=== PATIENT | female | born 1930 | race Asian ===

== ENCOUNTER 2017-02-09 14:18 | Emergency (ER) | payer OTHER, MEDICAID ==
--- NOTE | 2017-02-09 14:31 | CPEKG ---
Heart Rate: 67 RR Interval: 896 P-R Interval: 204 QRSD Interval: 94 QT Interval: 416 QTC Interval: 439 P [place]: 9 QRS [place]: -30 T Wave [place]: 38 EKG Severity - OTHERWISE NORMAL ECG - EKG Impression: SINUS RHYTHM EKG Impression: LEFT AXIS DEVIATION Electronically Signed By: Anjel Rubi 09-Feb-2017 14:50:04
[2017-02-09] MEDS ORDERED: NS 1,000 ML IV ONE (14:45)
[2017-02-09] MEDS ORDERED: ASPIRIN 81 MG CHEWABLE TAB PO ONE (14:45)
--- NOTE | 2017-02-09 14:49 | EDPHY ---
H & P Time Seen by Provider: 02/09/17 14:29 HPI/ROS: CHIEF COMPLAINT: Chest pain HISTORY OF PRESENT ILLNESS: Patient is an 86-year-old female who presents to the emergency department complaining of left-sided chest pain. She states that it began about 5 days ago. She tends to have short episodes last about 10-20 seconds each. On day 1 she had about 5 or 6 but they have increased each day until today she has had about 12. She describes it as very light. She states that it may be a pressure. No shortness of breath. No nausea vomiting. No diaphoresis. No lightheadedness. She has had slightly increase in her baseline cough. No fever. She and her family deny having any cardiac history. REVIEW OF SYSTEMS: Constitutional: denies: chills, fever, recent illness, recent injury EENTM: denies: blurred vision, double vision, nose congestion Respiratory: denies: cough, shortness of breath Cardiac: See HPI Gastrointestinal/Abdominal: denies: abdominal pain, diarrhea, nausea, vomiting, blood streaked stools Genitourinary: denies: dysuria, frequency, hematuria, pain Musculoskeletal: denies: joint pain, muscle pain Skin: denies: lesions, rash, jaundice, bruising Neurological: denies: headache, numbness, paresthesia, tingling, dizziness, weakness Hematologic/Lymphatic: denies: blood clots, easy bleeding, easy bruising Immunologic/allergic: denies: HIV/AIDS, transplant EXAM: GENERAL: Well-appearing, well-nourished and in no acute distress. HEAD: Atraumatic, normocephalic. EYES: Pupils equal round and reactive to light, extraocular movements intact, sclera anicteric, conjunctiva are normal. ENT: TMs normal, nares patent, oropharynx clear without exudates. Moist mucous membranes. NECK: Normal range of motion, supple without lymphadenopathy or JVD. LUNGS: Right lower lobe rhonchi HEART: Regular rate and rhythm without murmurs, rubs or gallops. ABDOMEN: Soft, nontender, normoactive bowel sounds. No guarding, no rebound. No masses appreciated. BACK: No CVA tenderness, no spinal tenderness, step-offs or deformities EXTREMITIES: Normal range of motion, no pitting or edema. No clubbing or cyanosis. NEUROLOGICAL: Cranial nerves II through XII grossly intact. Normal speech, normal gait. 5/5 strength, normal movement in all extremities, normal sensation PSYCH: Normal mood, normal affect. SKIN: Warm, dry, normal turgor, no visible rashes or lesions. Source: Patient Exam Limitations: No limitations - Personal History Tetanus Vaccine Date: < 10 years - Medical/Surgical History Hx Asthma: No Hx Chronic Respiratory Disease: No Hx Diabetes: No Hx Cardiac Disease: Yes Hx Renal Disease: No Hx Cirrhosis: No Hx Alcoholism: No Hx HIV/AIDS: No Hx Splenectomy or Spleen Trauma: No Other PMH: ulcer, Hepatitis C, HTN, pre-diabetes - Family History Significant Family History: No pertinent family hx - Social History Smoking Status: Never smoked Alcohol Use: Sober Drug Use: None Constitutional: Initial Vital Signs Temperature (C) 36.8 C 02/09/17 14:42 Heart Rate 68 02/09/17 14:42 Respiratory Rate 18 02/09/17 14:42 Blood Pressure 173/87 H 02/09/17 14:42 O2 Sat (%) 95 02/09/17 14:42 O2 Delivery Mode Room Air Allergies/Adverse Reactions: unknown pain med Allergy (Uncoded 02/09/17 14:39) Home Medications: Medication Instructions Recorded NK [No Known Home Meds] 02/09/17 Medical Decision Making - Diagnostics EKG Interpretation: An EKG obtained and was read and documented in trace view. Please see trace view for full reading and report. Sinus rhythm, no acute ischemic changes Imaging Results: Imaging Impressions Chest X-Ray 02/09/17 14:45 Impression: 1. Stable mild blunting of the right costophrenic angle could represent tiny residual effusion or pleural thickening. 2. Stable fibrotic change suspected at the left base. 3. Tortuous aorta with atherosclerotic calcifications. Chest/Thorax CTA 02/09/17 15:08 Impression: 1. No evidence of intraluminal thrombus within the pulmonary arterial system. 2. Moderate dilatation of the ascending aorta with arteriosclerotic calcifications. 3. Atherosclerotic calcified plaques associated with the coronary arteries. Mild cardiomegaly. 4. Small right pleural effusion. 5. Lobulated contour of the liver suggestive of cirrhosis. 6. Complex possible cyst within the right lobe liver adjacent to the gallbladder fossa inferiorly. Findings discussed with Anjel Rubi M.D. at 16:02 hour, 02/09/2017. ED Course/Re-evaluation: CHF appeared in the patient's previous records. She and her family deny this. She has never had any heart attacks, stents or enlarged heart. Her white blood cell count is low but at her baseline. She is also anemic. She states that she has always been told this and nobody knows why. No history of cancer. Her D-dimer is elevated. We will obtain a CT angio. CT chest angiogram was ordered because of positive D-dimer and chest pain 4:[address] and lab results which are very reassuring. The patient is asymptomatic. I recommended admission for continued rule out but she and her family decline. I offered 4 hour repeat troponin she and family declined. They would like to go home and return if her symptoms worsen. We discussed signs to watch for. She sees Dr. Albert here in this building. I will speak with their office to ensure that she can have early follow-up and likely stress testing. Differential Diagnosis: Partial list of the Differential diagnosis considered include but were not limited to; acute coronary disease, pleurisy, PE, pneumonia and although unlikely based on the history and physical exam, I also considered pneumothorax , dissection, aneurysm. I discussed these differential diagnoses and the plan with the patient as well as the usual and expected course. The patient understands that the diagnosis is provisional and that in medicine we are not always correct and that further workup is often warranted. Usual and customary warnings were given. All of the patient's questions were answered. The patient was instructed to return to the emergency department should the symptoms at all worsen or return, otherwise to followup with the physician as we discussed. - Data Points Laboratory Results: Laboratory Results 02/09/17 14:37 02/09/17 14:37 02/09/17 02/09/17 02/09/17 14:37 14:37 14:37 WBC 1.27 10^3/uL L 10^3/uL (3.80-9.50) RBC 3.18 10^6/uL L 10^6/uL (4.18-5.33) Hgb 11.1 g/dL L g/dL (12.6-16.3) Hct 31.9 % L % (38.0-47.0) MCV 100.3 fL H fL (81.5-99.8) MCH 34.9 pg H pg (27.9-34.1) MCHC 34.8 g/dL g/dL (32.4-36.7) RDW 14.2 % % (11.5-15.2) Plt Count 36 10^3/uL L 10^3/uL (150-400) MPV 11.2 fL fL (8.7-11.7) Neut % (Auto) 45.7 % % (39.3-74.2) Lymph % (Auto) 29.9 % % (15.0-45.0) [place] % (Auto) 18.9 % H % (4.5-13.0) Eos % (Auto) 4.7 % % (0.6-7.6) Baso % (Auto) 0.8 % % (0.3-1.7) Nucleat RBC Rel Count 0.0 % % (0.0-0.2) Absolute Neuts (auto) 0.58 10^3/uL L 10^3/uL (1.70-6.50) Absolute Lymphs (auto) 0.38 10^3/uL L 10^3/uL (1.00-3.00) Absolute Monos (auto) 0.24 10^3/uL L 10^3/uL (0.30-0.80) Absolute Eos (auto) 0.06 10^3/uL 10^3/uL (0.03-0.40) Absolute Basos (auto) 0.01 10^3/uL L 10^3/uL (0.02-0.10) Absolute Nucleated RBC 0.00 10^3/uL 10^3/uL (0-0.01) Immature Gran % 0.0 % % (0.0-1.1) Immature Gran # 0.00 10^3/uL 10^3/uL (0.00-0.10) Platelet Estimate DECREASED L (ADEQ) PT 15.3 SEC H SEC (12.0-15.0) INR 1.24 H (0.83-1.16) APTT 38.8 SEC H SEC (23.0-38.0) D-Dimer 2.26 ug/mLFEU H ug/mLFEU (0.00-0.50) Sodium 136 mEq/L mEq/L (134-144) Potassium 4.3 mEq/L mEq/L (3.5-5.2) Chloride 105 mEq/L mEq/L (97-110) Carbon Dioxide 23 mEq/l mEq/l (22-31) Anion Gap 8 mEq/L mEq/L (8-16) BUN 22 mg/dL mg/dL (7-23) Creatinine 0.8 mg/dL mg/dL (0.6-1.0) Estimated GFR > 60 Glucose 136 mg/dL H mg/dL (70-100) Calcium 8.7 mg/dL mg/dL (8.5-10.4) Troponin I < 0.012 ng/mL ng/mL (0.000-0.034) Medications Given: Discontinued Medications Aspirin (Aspirin) 324 mg PO EDNOW ONE Stop: 02/09/17 14:46 Last Admin: 02/09/17 15:17 Dose: 324 mg Sodium Chloride (Ns) 1,000 mls @ 0 mls/hr IV EDNOW ONE; Wide Open PRN Reason: Protocol Stop: 02/09/17 14:46 Last Admin: 02/09/17 15:18 Dose: 1,000 mls Departure - Departure Disposition: Home, Routine, Self-Care Clinical Impression: Chest pain Qualifiers: Chest pain type: unspecified Qualified Code(s): R07.9 - Chest pain, unspecified Condition: Fair Instructions: Chest Pain (ED) Referrals: Noemy Albert MD [Primary Care Provider] - 2-3 days, call for appt.
[2017-02-09 14:51] LABS: ADD DIFF? NO; ADD MORPH? NO; ADD SCAN? NO; ATYPICAL LYMPHOCYTE FLAG 0 (0-99); FRAGMENT RBC FLAG 0 (0-99); HEMATOCRIT 31.9 % (38.0-47.0); HEMOGLOBIN 11.1 g/dL (12.6-16.3); LEFT SHIFT FLG 0 (0-99); LIPEMIA HEMOLYSIS FLAG 90 (0-99); MEAN CELL HEMOGLOBIN 34.9 pg (27.9-34.1); MEAN CELL HEMOGLOBIN CONCENTR. 34.8 g/dL (32.4-36.7); MEAN CELL VOLUME 100.3 fL (81.5-99.8); MEAN PLATELET VOLUME 11.2 fL (8.7-11.7); PLATELET CLUMPS FLAG 0 (0-99); PLATELET COUNT 36 10^3/uL (150-400); RED BLOOD CELL COUNT 3.18 10^6/uL (4.18-5.33); RED CELL DISTRIBUTION WIDTH 14.2 % (11.5-15.2)
[2017-02-09 14:56] LABS: INR 1.24 (0.83-1.16); PROTIME(PATIENT) 15.3 SEC (12.0-15.0)
[2017-02-09 14:57] LABS: APTT 38.8 SEC (23.0-38.0)
[2017-02-09 15:03] VITALS: TEMP 98.2
[2017-02-09 15:05] LABS: ANION GAP 8 mEq/L (8-16); CALCIUM 8.7 mg/dL (8.5-10.4); CARBON DIOXIDE 23 mEq/l (22-31); CHLORIDE 105 mEq/L (97-110); CREATININE 0.8 mg/dL (0.6-1.0); GLOMERULAR FILTRATION RATE > 60; GLUCOSE 136 mg/dL (70-100); POTASSIUM 4.3 mEq/L (3.5-5.2); SODIUM 136 mEq/L (134-144)
[2017-02-09 15:09] LABS: TROPONIN I < 0.012 ng/mL (0.000-0.034)
[2017-02-09 15:11] LABS: PLATELET ESTIMATE DECREASED (ADEQ)
[2017-02-09] MEDS ORDERED: IOPAMIDOL (ISOVUE 370) 100 ML BTL IV ONE (15:14)
[2017-02-09 16:40] VITALS: BP 157/96; PULSE 64; RESP 20; O2SAT 96
== END 2017-02-09 16:30 | disposition home or self-care (01) ==
LOC: CED 14:18
DX: R07.9 Chest pain, unspecified (principal); I10 Essential (primary) hypertension; E86.9 Volume depletion, unspecified
CPT/HCPCS: 71020; 71275; 93005; 96360; 99285; Q9967; 80048-PO; 84484-PO; 85025-PO; 85378-PO; 85610-PO; 85730-PO

== ENCOUNTER 2017-04-09 14:54 | Observation (INO) | payer OTHER, MEDICAID ==
--- NOTE | 2017-04-09 15:04 | CPEKG ---
Heart Rate: 79 RR Interval: 759 P-R Interval: 204 QRSD Interval: 92 QT Interval: 400 QTC Interval: 459 P [place]: 3 QRS [place]: -30 T Wave [place]: 41 EKG Severity - OTHERWISE NORMAL ECG - EKG Impression: SINUS RHYTHM EKG Impression: LEFT AXIS DEVIATION Electronically Signed By: Abilio Desai 09-Apr-2017 16:11:59
[2017-04-09] MEDS ORDERED: ASPIRIN 81 MG CHEWABLE TAB PO ONE (15:09)
[2017-04-09] MEDS ORDERED: NS 500 ML IV ONE (15:09)
[2017-04-09] MEDS ORDERED: NITROGLYCERIN 0.4 MG BTL SL ONE ×2 (15:13)
[2017-04-09] MEDS ORDERED: NS 1,000 ML IV SCH (15:15)
[2017-04-09 15:17] LABS: PLATELET COUNT 41 10^3/uL (150-400)
--- NOTE | 2017-04-09 15:23 | EDPHY ---
H & P Time Seen by Provider: 04/09/17 14:58 HPI/ROS: HPI Chest discomfort. 86-year-old female by private vehicle with her daughter. This patient reports that she developed a sensation of chest discomfort which she describes as a pressure sensation last night prior to going to bed. She also reports that last night prior to going to bed she had a heavy sensation in her right shoulder. She reports that she was able to sleep but woke up at 6:00 a.m. in the pain in her chest was worse. She reports she was able to go back to sleep for a couple of hours but then woke up again and the pain has persisted through the day. She reports that has been intermittent in intensity but present at a low level for most of the day. She reports now that she is in the emergency department she does not have any pain. She also reports associated exertional shortness of breath. Recent history includes a long plane flight from [facility] through [facility] where they were stuck in bad weather and then here. She has no prior history of coronary artery disease or venous thrombosis. She states that she has been diagnosed with hypertension in the past as well as non-insulin -dependent diabetes but does not take medications for this currently. ROS: Constitutional: No fever, no chills. No weakness. Eyes: No discharge. No changes in vision. ENT: No sore throat. No nasal congestion or rhinorrhea. Respiratory: No cough. As above. Cardiac: As above, no palpitations. Gastrointestinal: No abdominal pain, no vomiting, no diarrhea. Genitourinary: No hematuria. No dysuria or increased frequency with urination. Musculoskeletal: No back pain. No neck pain. No myalgias or arthralgias. Skin: No rashes. Neurological: No headache. No focal weakness or altered sensation. Past medical history: Peptic ulcer disease, hepatitis-C, as above. Her primary care physician is Dr. Noemy Albert in this building. Social history: Nonsmoker. No alcohol. Here with her daughter. Physical Exam: General Appearance: Alert, no distress. This patient is responding to questions appropriately and in full sentences. This patient appears well- hydrated and well-nourished. Eyes: Pupils equal and round no pallor or injection. No lid edema, erythema or injection. Respiratory: There are no retractions, lungs are clear to auscultation with good air movement bilaterally. Cardiovascular: Regular rate and rhythm. No murmur. Gastrointestinal: Abdomen is soft and nontender, no masses, bowel sounds normal. No focal tenderness at McBurney's point. No Burciaga sign. Neurological: Motor sensory function is grossly intact. Cranial nerves are normal. Skin: Warm and dry, no rashes. Musculoskeletal: Neck is supple and nontender. Extremities are symmetrical. All joints range without pain or impingement. Psychiatric: No agitation. No depression. Database: EKG: EKG time is 3:01 p.m.; EKG shows a narrow complex normal sinus rhythm with a ventricular rate of 79. Left axis deviation noted. The LA, QRS, QT intervals are within normal limits. There are no ST-T wave changes indicative of ischemic or injury pattern. No evidence of right heart strain. Interpreted by me. EKG time is 3:47 p.m.; EKG shows a narrow complex normal sinus rhythm with a ventricular rate of 73. Left axis deviation noted. The LA, QRS, QT intervals are within normal limits. There are no ST-T wave changes indicative of ischemic or injury pattern. No evidence of right heart strain. Interpreted by me. Imaging: Chest x-ray AP portable; the cardiac mediastinal silhouette is unremarkable. No evidence of infiltrate or pneumothorax. No acute cardiopulmonary disease process noted. Interpreted by me. CT angiogram of chest; negative for pulmonary embolism and dissection. Stable since previous study. No acute pathology. Results were discussed with staff radiologist Dr. Andi Goddard. Procedures: Emergency department course: IV placed. She was placed on a cardiac cath lab manager. EKG obtained and reviewed by myself. Vital signs reviewed. She is moderately hypertensive. No chest pain at this time. She was given 324 mg of chewed aspirin. Nitroglycerin at the bedside. 3:40 p.m., patient re-evaluated. No chest pain at this time. Talking with family on her cell phone. Results of elevated D-dimer discussed. Patient consents for CT angiogram of chest to evaluate for PE. CBC reviewed. Patient thrombocytopenic and leukopenic. Patient's troponin is elevated at 0.051. EKG repeated. Patient remains without chest pain. 3:50 p.m., spoke with on-call hospitalist Dr. Julianna grimes. He accepts this patient for transfer and admission to telemetry at [facility]. He is aware CT angiogram of chest is pending. 4:20 p.m., patient re-evaluated. Resting comfortably at this time. Results of CT angiogram of chest reviewed with her and family. Emergency department diagnostic workup discussed. All of their questions were answered. The patient was transferred by ambulance to [facility] in good condition. Differential Diagnosis: The differential diagnosis on this patient includes but is not limited to acute coronary syndrome, pulmonary embolism, congestive heart failure. This represents a partial list of diagnoses considered. These considerations are based on history, physical exam, past history, reassessment and diagnostic testing. Smoking Status: Never smoked Constitutional: Initial Vital Signs Temperature (C) 36.6 C 04/09/17 15:00 Heart Rate 83 04/09/17 15:00 Respiratory Rate 18 04/09/17 15:00 Blood Pressure 178/108 H 04/09/17 15:00 O2 Sat (%) 95 04/09/17 15:00 O2 Delivery Mode Room Air Allergies/Adverse Reactions: unknown pain med Allergy (Uncoded 04/09/17 15:08) Home Medications: Medication Instructions Recorded Multi-Vitamin Daily 04/09/17 Zyrtec 04/09/17 Medical Decision Making - Diagnostics Imaging Results: Imaging Impressions Chest X-Ray 04/09/17 15:10 Impression: 1. There is no new focal infiltrate, or congestive heart failure. 2. Stable cardiac and mediastinal silhouette in this patient with a prior history of a mild ascending thoracic aortic aneurysm. - Data Points Laboratory Results: Laboratory Results 04/09/17 15:10 04/09/17 15:10 04/09/17 04/09/17 04/09/17 15:10 15:10 15:10 WBC 1.27 10^3/uL L 10^3/uL (3.80-9.50) RBC 3.33 10^6/uL L 10^6/uL (4.18-5.33) Hgb 11.4 g/dL L g/dL (12.6-16.3) Hct 32.8 % L % (38.0-47.0) MCV 98.5 fL fL (81.5-99.8) MCH 34.2 pg H pg (27.9-34.1) MCHC 34.8 g/dL g/dL (32.4-36.7) RDW 13.7 % % (11.5-15.2) Plt Count 41 10^3/uL L 10^3/uL (150-400) MPV 10.9 fL fL (8.7-11.7) Neut % (Auto) 48.7 % % (39.3-74.2) Lymph % (Auto) 33.9 % % (15.0-45.0) [place] % (Auto) 14.2 % H % (4.5-13.0) Eos % (Auto) 1.6 % % (0.6-7.6) Baso % (Auto) 0.8 % % (0.3-1.7) Nucleat RBC Rel Count 0.0 % % (0.0-0.2) Absolute Neuts (auto) 0.62 10^3/uL L 10^3/uL (1.70-6.50) Absolute Lymphs (auto) 0.43 10^3/uL L 10^3/uL (1.00-3.00) Absolute Monos (auto) 0.18 10^3/uL L 10^3/uL (0.30-0.80) Absolute Eos (auto) 0.02 10^3/uL L 10^3/uL (0.03-0.40) Absolute Basos (auto) 0.01 10^3/uL L 10^3/uL (0.02-0.10) Absolute Nucleated RBC 0.00 10^3/uL 10^3/uL (0-0.01) Immature Gran % 0.8 % % (0.0-1.1) Immature Gran # 0.01 10^3/uL 10^3/uL (0.00-0.10) Platelet Estimate DECREASED L (ADEQ) PT 15.4 SEC H SEC (12.0-15.0) INR 1.24 H (0.83-1.16) APTT 36.3 SEC SEC (23.0-38.0) D-Dimer 2.70 ug/mLFEU H ug/mLFEU (0.00-0.50) Sodium 137 mEq/L mEq/L (134-144) Potassium 4.2 mEq/L mEq/L (3.5-5.2) Chloride 103 mEq/L mEq/L (97-110) Carbon Dioxide 22 mEq/l mEq/l (22-31) Anion Gap 12 mEq/L mEq/L (8-16) BUN 19 mg/dL mg/dL (7-23) Creatinine 0.9 mg/dL mg/dL (0.6-1.0) Estimated GFR 59 Glucose 177 mg/dL H mg/dL (70-100) Calcium 8.6 mg/dL mg/dL (8.5-10.4) Creatine Kinase 165 IU/L H IU/L (0-156) CK-MB (CK-2) Fraction 2.16 ng/mL ng/mL (0.00-4.55) CK-MB (CK-2) % 1.3 % % (0.0-4.0) Creatine Kinase Interp NEGATIVE (NEGATIVE) Troponin I 0.051 ng/mL H ng/mL (0.000-0.034) NT-Pro-B Natriuret Pep 293 pg/mL pg/mL (0-450) Medications Given: Sodium Chloride (Ns) 1,000 mls @ 500 mls/hr IV CONT AMAN Stop: 10/06/17 15:14 Last Admin: 04/09/17 15:20 Dose: 1,000 mls Discontinued Medications Aspirin (Aspirin) 324 mg PO EDNOW ONE Stop: 04/09/17 15:10 Last Admin: 04/09/17 15:16 Dose: 324 mg Sodium Chloride (Ns) 500 mls @ 1,000 mls/hr IV EDNOW ONE PRN Reason: Protocol Stop: 04/09/17 15:38 Last Admin: 04/09/17 15:21 Dose: Not Given Departure - Departure Disposition: [facility] In[facility] Acute Clinical Impression: Chest pain, Exertional dyspnea, Leukopenia, Thrombocytopenia
[2017-04-09 15:24] LABS: INR 1.24 (0.83-1.16); PROTIME(PATIENT) 15.4 SEC (12.0-15.0)
[2017-04-09 15:26] LABS: CREATINE KINASE 165 IU/L (0-156)
[2017-04-09] MEDS ORDERED: IOPAMIDOL (ISOVUE 370) 100 ML BTL IV ONE (15:42)
[2017-04-09] MEDS ORDERED: ONDANSETRON DISINTEGRATING 4 MG TAB PO PRN (21:02)
[2017-04-09] MEDS ORDERED: ACETAMINOPHEN 325 MG TAB PO PRN (21:02)
[2017-04-09] MEDS ORDERED: ONDANSETRON 4 MG/2 ML VIAL IVP PRN (21:02)
--- NOTE | 2017-04-09 21:37 | GHP ---
[f rep st] HISTORY AND PHYSICAL DATE OF ADMISSION: 04/09/2017 CHIEF COMPLAINT: Chest pain. HISTORY OF PRESENT ILLNESS: An 86-year-old female with no previous cardiac history. She woke up thi s morning with some chest pressure. She took her blood pressure, it was 180s/low 100s. She then shahla t back to sleep and it seemed like the pain went away, then woke up at 8 a.m. with continued chest pr essure. The chest pain did not resolve until she went to the emergency department. She used to be t reated for high blood pressure, but has not been on medications for a little bit of time. She marcin schmid does not have any chest pain. She does have a history of hepatitis C and some chronic liver dise ase, although that has been treated. She is quite active at baseline. REVIEW OF SYSTEMS: A 10-point review of systems was obtained, and other than stated, it was negative . PAST MEDICAL HISTORY: 1. Hepatitis C, status post treatment. 2. Cirrhosis. 3. Chronic leukopenia, which her daughter actually also has as well. 4. Hypertension. 5. Type 2 diabetes. Both of these she has stopped taking medicines per her doctor's request. SOCIAL HISTORY: No smoking or alcohol. FAMILY HISTORY: Both parents are . PHYSICAL EXAM: VITAL SIGNS: Afebrile, blood pressure is 158/92, heart rate 72, oxygen saturation 96 % on room air. GENERAL: The patient is well developed, in no apparent distress. HEENT: Nonicteric sclerae. Extraocular movements intact. Moist mucous membranes. NECK: Supple. No thyromegaly. L UNGS: Good effort. Clear to auscultation bilaterally. CARDIOVASCULAR: Regular rate and rhythm. N o murmurs, gallops. ABDOMEN: Positive bowel sounds. Soft, nontender, nondistended. No hepatosplen omegaly. EXTREMITIES: No clubbing, cyanosis, or edema. SKIN: Without rash. Warm, dry, intact. NE UROLOGIC: Alert and oriented x3. Moving all 4 extremities equally. PSYCHIATRIC: Normal mood and a ffect. LABORATORY DATA: EKG, personally reviewed and interpreted, showed normal sinus rhythm with no ischem ic changes. Chest x-ray, personally reviewed and interpreted, negative. CT scan of the chest shows no PE, mild aorta, coronary artery disease. White count 1, hemoglobin 11, platelets 41. Troponin slightly elevated at 0.051. ASSESSMENT: This is an 86-year-old female presenting with chest pain and a mildly elevated troponin. PLAN: 1. Chest pain. Patient is currently chest pain free. She does have a slightly elevated troponin, a lthough her EKG is nonischemic. We will cycle troponins. She is pretty active and, thus, we will ge t a stress test in the morning. 2. Chest pain could be the result of strain from high blood pressure. 3. Pancytopenia. The patient's daughter said that her white blood cell count is pretty low as well. This could also be due to chronic liver disease. 4. High blood pressure. We will watch her overnight. She may require some medication for her blood pressure. 5. Elevated blood sugar/type 2 diabetes. We will check hemoglobin A1c. /[id number]/MODL
[2017-04-10 04:30] LABS: PLATELET COUNT 40 10^3/uL (150-400)
--- NOTE | 2017-04-10 08:26 | CPEKG ---
Heart Rate: 73 RR Interval: 822 P-R Interval: 204 QRSD Interval: 98 QT Interval: 400 QTC Interval: 441 P [place]: 9 QRS [place]: -30 T Wave [place]: 25 EKG Severity - OTHERWISE NORMAL ECG - EKG Impression: SINUS RHYTHM EKG Impression: LEFT AXIS DEVIATION Electronically Signed For: Abilio Desai 10-Apr-2017 08:26:51
--- NOTE | 2017-04-10 08:46 | CPEKG ---
Heart Rate: 74 RR Interval: 811 P-R Interval: 156 QRSD Interval: 94 QT Interval: 416 QTC Interval: 462 P [place]: 9 QRS [place]: -28 T Wave [place]: 36 EKG Severity - OTHERWISE NORMAL ECG - EKG Impression: SINUS RHYTHM EKG Impression: VENTRICULAR PREMATURE COMPLEX EKG Impression: BORDERLINE LEFT AXIS DEVIATION Electronically Signed By: Ace Mcdonough 10-Apr-2017 14:34:59
[2017-04-10] MEDS ORDERED: CARVEDILOL 6.25 MG TAB PO ONE (11:20)
[2017-04-10] MEDS: ASPIRIN EC 81 MG TAB PO SCH (11:58)
--- NOTE | 2017-04-10 14:01 | GCON ---
[f rep st] CONSULTATION CARDIOLOGY CONSULTATION. DATE OF CONSULTATION: 04/10/2017 REASON FOR CONSULTATION: We were asked by Dr. Faith Levine of [facility] to evaluate the patien t for her elevated troponin and episodes of chest pain. HISTORY OF PRESENT ILLNESS: The patient is an 86-year-old female with a history of hypertension, off medications for the past 3 years, treated hep C, who is admitted after having episodes of chest pain . Her recent medical history involves having a diarrheal illness while she was traveling in the [facility] last week. She returned from the [facility] on Sunday after a 15 hour commu te. After her return that day, she noted URI type symptoms. On Sunday morning,which is the day of h er admission, she noted a severe upper midsternal chest discomfort that awoke her from her sleep. Sh e denies any radiation but noted that her heart rate felt elevated and she felt short of breath. She checked her blood pressure and it was quite elevated at 1 80s/100. The pain mitigated somewhat spon taneously and she went back to sleep. Again, she was woken at 8 a.m. with similar discomfort. Her bl ood pressure was similarly elevated. She called her family member who recommended emergency evaluati on. Upon arrival to the emergency department, she reports her symptoms have resolved. She has not h ad any further episodes of discomfort. She denies any previous episodes of this type of discomfort. She has not been noting any PND, orthopnea, palpitations, presyncope, syncope. REVIEW OF SYSTEMS: As per HPI. A complete 10-point review of systems was obtained and is negative e xcept for what is dictated. PAST MEDICAL HISTORY: 1. Treated hepatitis C. 2. History of cirrhosis. 3. History of chronic leukopenia. 4. History of hypertension previously on treatment. 5. History of type 2 diabetes mellitus not currently on any medications. SOCIAL HISTORY: The patient denies any alcohol or tobacco abuse. PAST SURGICAL HISTORY: Bladder suspension, hemorrhoidectomy and hysterectomy. FAMILY HISTORY: Father at age 36 with what is suspected to be some type of cancer. She has 6 c hildren. One child but the other 5 have no significant medical issues. PHYSICAL EXAM: VITAL SIGNS: BP of 150/82, heart rate of 66, respirations 16, O2 saturation 96% on r oom air, temp of 98.5 degrees Fahrenheit. GENERAL: She is a very pleasant female in no apparent dis tress. HEENT: Normocephalic atraumatic. Eyes are without scleral icterus. Mucous membranes moist. HEART: Regular rate and rhythm with no rubs, gallops, or murmurs. LUNGS: With minimal opening cr ackles. No rhonchi. ABDOMEN: Soft with normoactive bowel sounds. SKIN: Warm and dry without chucky a. PSYCHIATRIC: Normal mood and affect. NEUROLOGIC: No deficits detected grossly. LABORATORY DATA: CBC with WBC 1.21, hemoglobin 10.7, hematocrit 29.7, platelet count of 40. BMP was sodium 137, potassium 4.2, chloride 103, CO2 22, BUN 19, creatinine 0.9, glucose 177. Hemoglobin A1c of 5.5. Troponin 0.051, then 0.078 then 0.078. D-dimer 2. Chest x-ray images personally reviewed sh ows no acute cardiovascular process. A 12-lead ECG, personally interpreted, demonstrates sinus rhythm with 1 PVC, leftward axis. Telemetry review shows sinus rhythm. IMPRESSION AND PLAN: The patient presents with chest pain syndrome. 1. Chest pain. She has a minimally elevated troponin in the setting of very elevated blood pressure s. Symptoms may be acute coronary syndrome; however, she has no ongoing symptoms. Options were revi ewed and patient would like to adopt watchful waiting and medical management. She will be started on carvedilol for blood pressure as well as coronary artery disease management. 2. Hypertension. The patient has had a previous diagnosis of this and has quite elevated pressures c urrently. We will start with carvedilol. She was, in the past, on Univasc. 3. Pancytopenia. This is a known problem and may be related to her chronic liver disease. She may h ave outpatient followup for this. /[id number]/MODL
--- NOTE | 2017-04-10 14:29 | ASMTCMCOM ---
CM Note CM Note Notes: 04/10/2017 Case Management Note Reviewed chart, discussed with RN. There are no case management d/c needs identified d/t pt activity levels prior to admission and levels of family support. Pt is independent in ADL's. There are no PT or OT evals ordered at this time. Case Management d/c poc: anticipating home independent with follow up as directed. Case Management available if needs change. Date Signed: 04/10/2017 02:28 PM Electronically Signed By:Jyoti Jaffe RN
--- NOTE | 2017-04-10 14:53 | HOSPPROG ---
Hospitalist Progress Note Assessment/Plan: 86 yo F w htn, mildy + trop in setting of markedly elevated bp trop peaked no PE bp improved on carvedilol dc today known dilated aorta unchanged and without dissection Subjective: no events tele. case d/w ashanti pavon, cardiology PA Objective: Vital Signs Temp Pulse Resp BP Pulse Ox 36.9 C 66 16 150/82 H 96 04/10/17 12:07 04/10/17 12:07 04/10/17 12:07 04/10/17 12:07 04/10/17 12:07 Laboratory Results 04/10/17 03:21 04/09/17 04/10/17 04/11/17 05:59 05:59 05:59 Intake Total 900 220 Balance 900 220 PT 15.4 SEC (12.0-15.0) H 04/09/17 15:10 INR 1.24 (0.83-1.16) H 04/09/17 15:10 - Physical Exam Constitutional: no apparent distress, appears nourished Eyes: PERRL, anicteric sclera Ears, Nose, Mouth, Throat: moist mucous membranes, hearing normal Cardiovascular: regular rate and rhythym, no murmur, rub, or gallop Respiratory: no respiratory distress, no rales or rhonchi Gastrointestinal: normoactive bowel sounds, soft, non-tender abdomen Genitourinary: no bladder fullness, No valencia in urethra Skin: warm, normal color Musculoskeletal: full muscle strength, no muscle tenderness Neurologic: AAOx3 ICD10 Worksheet Patient Problems: Problems Problem Status Onset Chest pain Acute Exertional dyspnea Acute Leukopenia Acute Thrombocytopenia Acute
--- NOTE | 2017-04-10 17:13 | ECHO ---
[email or web address] [address] [address] Main: [phone] Fax: Transthoracic Echocardiogram Name: LIZZIE LARKIN MR#: [id number] Study Date: 04/10/2017 Study Time: 01:37 PM Date of : 1930 Age: 86 year(s) Height: 162.6 cm (64 in.) Weight: 71.67 kg (158 lb.) BSA: 1.77 m2 Gender: Female Examination: Echo Indication: ACS Image Quality: Contrast: Requested by: Rajwinder Kincaid BP: 150 mmHg/82 mmHg Heart Rate: Rhythm: Normal sinus rhythm Indication: ACS Procedure Staff Sewing Teacher: Rafael Gan Reading Physician: Ace Mcdonough Requesting Provider: Conclusions: Normal size left ventricle. No LV hypertrophy. Normal global systolic LV function. EF is 63 %. No regional wall motion abnormality. Diastolic dysfunction is present. . The left atrium is moderately to severely dilated. The right atrium is moderately dilated. Mild mitral valve leaflet calcification is present. Mild mitral valve regurgitation is present. The aortic valve is tri-leaflet. Mild aortic cusp calcification is noted. Mild aortic valve regurgitation is present. The tricuspid valve is normal in appearance and function. Measurements: Chambers Valvular Assessment AV/MV Valvular Assessment TV/PV Normal Normal Normal Name Value Range Name Value Range Name Value Range Ao Tanisha (MM): 3.2 cm (2.2 cm-3.7 AV Vmax: 1.90 m/s (1 m/s-1.7 TR Vmax: 2.74 mm/s ( - ) cm) m/s) TR PGmax: 30 mmHg ( - ) IVSd (2D): 1.2 cm (0.6 cm-1.1 AV maxP mmHg ( - ) syst. PAP: 35 mmHg ( - ) cm) LVOT Vmax: 0.98 m/s (0.7 m/s-1.1 PV Vmax: 1.02 m/s (0.6 m/s-0.9 LVDd (2D): 5.0 cm (3.9 cm-5.3 m/s) m/s) cm) AR (PHT): 805 ms ( - ) PV PGmax: 4 mmHg ( - ) LVDs (2D): 3.3 cm (2.1 cm-4 MV E Vmax: 0.82 m/s ( - ) cm) MV A Vmax: 1.15 m/s ( - ) LVPWd (2D): 1.2 cm ( - ) MV E/A: 0.71 ( - ) LVEF (2D): 63 (>=54 %) MV maxP mmHg ( - ) MV meanP mmHg ( - ) Patient: LIZZIE LARKIN Study Date: 04/10/2017 Page 1 of 2 01:37 PM Continued Measurements: Chambers Valvular Assessment AV/MV Valvular Assessment TV/PV Name Value Name Value Name Value LADs: 3.8 cm MV E/E' Septal: 24.40 CVP (est.): 5 mmHg LADs Lon.6 cm MV VTI: 40.80 cm LA Area: 24.2 cm2 AR Vmax: 3.36 cm/s LA Volume: 99 ml LA Volume Index: 55.9 ml/m2 Findings: Left Ventricle: Normal size left ventricle. No LV hypertrophy. Normal global systolic LV function. EF is 63 %. No regional wall motion abnormality. Diastolic dysfunction is present. . Right Ventricle: Normal size right ventricle. Left Atrium: The left atrium is moderately to severely dilated. Right Atrium: The right atrium is moderately dilated. Mitral Valve: Mild mitral valve leaflet calcification is present. Mild mitral valve regurgitation is present. No mitral stenosis is present. Aortic Valve: The aortic valve is tri-leaflet. Mild aortic cusp calcification is noted. Mild aortic valve regurgitation is present. No aortic valve stenosis is present. Tricuspid Valve: The tricuspid valve is normal in appearance and function. Pulmonic Valve: Pulmonary valve not well visualized. Aorta: The aorta is normal. Pericardium: No pericardial effusion. (No Signature Object) Patient: LIZZIE LARKIN Study Date: 04/10/2017 Page 2 of 2 01:37 PM [id number]
[2017-04-10] MEDS: CARVEDILOL 6.25 MG TAB PO SCH (18:02)
[2017-04-11 07:20] VITALS: BP 122/69; PULSE 58; RESP 14; TEMP 98; O2SAT 95
[2017-04-11] MEDS: ASPIRIN EC 81 MG TAB PO SCH (08:56)
[2017-04-11] MEDS: CARVEDILOL 6.25 MG TAB PO SCH (08:57)
--- NOTE | 2017-04-11 09:48 | HOSPPROG ---
Hospitalist Progress Note Assessment/Plan: 86 yo F w htn, mildy + trop in setting of markedly elevated bp trop peaked no PE bp improved on carvedilol dc today known dilated aorta unchanged and without dissection home today see dc summary Subjective: feels great. ready for dc Objective: Vital Signs Temp Pulse Resp BP Pulse Ox 36.7 C 58 L 14 122/69 H 95 04/11/17 07:18 04/11/17 07:18 04/11/17 07:18 04/11/17 07:18 04/11/17 07:18 Laboratory Results 04/10/17 03:21 04/10/17 04/11/17 04/12/17 05:59 05:59 05:59 Intake Total 900 920 Balance 900 920 PT 15.4 SEC (12.0-15.0) H 04/09/17 15:10 INR 1.24 (0.83-1.16) H 04/09/17 15:10 - Physical Exam Constitutional: no apparent distress, appears nourished Eyes: PERRL, anicteric sclera Ears, Nose, Mouth, Throat: moist mucous membranes, hearing normal Cardiovascular: regular rate and rhythym, no murmur, rub, or gallop Respiratory: no respiratory distress, no rales or rhonchi Gastrointestinal: normoactive bowel sounds, soft, non-tender abdomen Genitourinary: no bladder fullness, No valencia in urethra Skin: warm Musculoskeletal: full muscle strength Neurologic: AAOx3 Psychiatric: interacting appropriately ICD10 Worksheet Patient Problems: Problems Problem Status Onset Chest pain Acute Exertional dyspnea Acute Leukopenia Acute Thrombocytopenia Acute
--- NOTE | 2017-04-11 10:40 | PDCARPN ---
Cardiology Progress Note Chief Complaint: cp/? ACS Assessment/Plan: Assessment: 86F PMH htn (off meds), T2DM, p/w cp. Antecedent GI and URI illnesses. Trops minimally elevated. #. cp/?ACS: trops flat and low pt opted for medical management no recurrence of cp has tolerated addition of Coreg Echo with normal EF and grossly normal for age OK to d/c #. Htn: BP improved on Coreg pt advised to maintain BP log for next few weeks Plan: OK to d/c follow up cardiology 2 weeks 04/11/17 10:36 Subjective: Feels well. Reviewed/Discussed With: hospitalist (Dr. Burks) Objective: Vital Signs (8 Hrs) Temp Pulse Resp BP Pulse Ox 04/11/17 07:18 98.0 F 58 L 14 122/69 H 95 04/11/17 04:00 98.1 F 60 15 133/73 H 90 L Intake/Output (24 Hrs) 04/10/17 04/11/17 04/12/17 05:59 05:59 05:59 Intake Total 900 920 Balance 900 920 Intake: Oral (ml) 350 920 IV Infused (ml) 550 Other: Weight 72 kg Intake Quantity Yes Sufficient Number of Voids Toilet 2 1 Result Diagrams: 04/10/17 03:21 04/09/17 15:10 Cardiac Labs: Cardiac Lab Results (72 Hrs) 04/10/17 04/09/17 03:21 20:15 Troponin I 0.078 H 0.078 H Telemetry: SR - Physical Exam Constitutional: healthy appearing, no apparent distress ICD10 Worksheet Patient Problems: Problems Problem Status Onset Chest pain Acute Exertional dyspnea Acute Leukopenia Acute Thrombocytopenia Acute
--- NOTE | 2017-04-11 16:11 | ASDISCHSUM ---
Discharge Information Plan Status:Home with No Needs Medically Cleared to Leave:04/10/2017 Discharge Date:04/11/2017 11:41 AM CM D/C Disposition:Home, Routine, Self-Care ADT D/C Disposition:Home, Routine, Self-Care Projected Discharge Date:04/11/2017 12:00 AM Transportation at D/C:Family Discharge Delay Reason: Follow-Up Date:04/11/2017 12:00 AM Discharge Slot: Final Diagnosis: Placement Information Patient Contact Information Contact Name:MIRANDA Relationship:Other Address: Work Phone: City: [facility] Phone: State/[place] - [employer] Code: Email: Financial Information Financial Class: Primary Plan Desc:MEDICARE OUTPATIENT Primary Plan Number:[id number] Secondary Plan Desc:MEDICAID HEALTH [place] Secondary Plan Number:[id number] Assessment Information [facility] CM Progress Note CM Note CM Note Notes: 04/10/2017 Case Management Note Reviewed chart, discussed with RN. There are no case management d/c needs identified d/t pt activity levels prior to admission and levels of family support. Pt is independent in ADL's. There are no PT or OT evals ordered at this time. Case Management d/c poc: anticipating home independent with follow up as directed. Case Management available if needs change. Date Signed: 04/10/2017 02:28 PM Electronically Signed By:Jyoti Jaffe RN Intervention Information Intervention Type:*Incorrect Registration Date of Service:04/10/2017 10:35 AM Patient Type:Inpatient Staff Member:DAYDAY Burks Courtney Hours: Discipline: Severity: Comment: Intervention Type:*HUERTA-Signed Date of Service:04/10/2017 02:08 PM Patient Type:Observation Staff Member:Tracee Hadley Hours: Discipline: Severity: Comment:
--- NOTE | 2017-04-12 04:31 | GDS ---
[f rep st] DISCHARGE SUMMARY DISCHARGE DIAGNOSES: 1. Chest pain. 2. Hypertension. 3. History hepatitis C, status post treatment with cirrhosis and chronic leukopenia. 4. Type 2 diabetes with no medications. HOSPITAL COURSE: Please see admission history and physical by Dr. Faith Levine. The patient presented with chest pain, elevated blood pressure. She had no PE on CT PE. She had evidence of atherosclero tic disease of her arteries in her coronary arteries, as well as aorta. She was offered stress test and seen by Cardiology, which she declined. She had an echocardiogram, which revealed normal EF with out focal wall motion abnormalities. The patient was started on carvedilol with improvement in her blood pressure. She is discharged home on the second hospital day. /[id number]/MODL
== END 2017-04-11 11:41 | disposition home or self-care (01) ==
LOC: CED 14:54 → INTOOBSV 15:52 → CEDHOLD 15:52 → F2W 17:55
PROVIDERS: ADMIT Internal Medicine; ATTEND Internal Medicine
DX: R07.9 Chest pain, unspecified (principal); I10 Essential (primary) hypertension; E11.9 Type 2 diabetes mellitus without complications; Z86.19 Personal history of other infectious and parasitic diseases
CPT/HCPCS: 71045; 71275; 93005; 93306; 96360; 96361; 97165; 99285; G0378; G8987; G8988; G8989; Q9967; 80048-PO; 82550-PO; 82553-PO; 83880-PO; 84484-PO; 85025-PO; 85378-PO; 85610-PO; 85730-PO

== ENCOUNTER → 2017-06-07 | Outpatient (CLI) | payer OTHER, MEDICAID | LOC: BRMIMAGING 13:21 | PROVIDERS: ATTEND Family Medicine | DX: Z13.820 Encounter for screening for osteoporosis (principal); M81.0 Age-related osteoporosis without current pathological fracture ==

== ENCOUNTER → 2017-07-20 | Outpatient (CLI) | payer OTHER, MEDICAID | LOC: BHFA 13:00 | PROVIDERS: ATTEND Internal Medicine Cardiovascular Disease | DX: R07.9 Chest pain, unspecified (principal); R00.2 Palpitations | CPT/HCPCS: 78452; 93017; A9500; J2785 ==

== ENCOUNTER 2017-08-17 14:18 | Emergency (ER) | payer OTHER, MEDICAID ==
--- NOTE | 2017-08-17 15:06 | EDPHY ---
H & P Time Seen by Provider: 08/17/17 14:23 HPI/ROS: CHIEF COMPLAINT: Left-sided rib pain History by patient HISTORY OF PRESENT ILLNESS: The 87-year-old woman presents complaining of left- sided lower rib pain which hurts when she coughs. Patient states she has had a mild cold and 2 days ago fell while working in the garden tumbling off a 2 or 3 [address] She did strike her head but did not lose consciousness and was able to get up on her own and walk into the house. Her [id number] could not convince her to seek medical attention at that time. She did have rib pain at that time. Subsequently the pain has persisted and gotten worse but occurs only when she coughs. She denies any shortness of breath. She denies any headache, nausea, vomiting, focal numbness or weakness or vision problems. She took an Aleve and some Tylenol which gave her minimal relief from the left- sided rib pain. She also tried putting on some menthol patches with minimal relief. The patient is not on aspirin, Plavix or any other blood thinning medication. Her last tetanus shot was within 10 years. REVIEW OF SYSTEMS: As in HPI, and all other systems reviewed and are negative Smoking Status: Never smoked Physical Exam: General Appearance: Alert, alert, cooperative and nontoxic appearing, speaking full sentences. Head: normocephalic, positive hematoma with superficial abrasion right frontal area and left parietal area Neck: No bony tenderness, full range of motion Eyes: Pupils equal and round, reactive to light, no pallor or injection. Mouth: Mucous membranes moist. Respiratory: Normal, effort, lungs are clear to auscultation. No wheezes, rales or rhonchi. Chest: Positive left anterior lower rib tenderness, no step-off or crepitus Cardiovascular: Regular rate and rhythm. S1, S2, no murmurs, gallops or rubs appreciated Gastrointestinal: Abdomen is soft and nontender, no masses, bowel sounds normal. Back: No CVA tenderness, no bony tenderness Neurological: Awake, alert and oriented x 3, cranial nerves 2-12 are intact, no pronator drift, normal gait, normal reflexes, strength is 5/5 and equal bilaterally lower extremities Skin: Warm and dry, no rashes. Musculoskeletal: No deformities Extremities: full range of motion, no edema, DP2+ bilat Psychiatric: Patient has normal affect, there is no agitation. Constitutional: Initial Vital Signs Temperature (C) 36.6 C 08/17/17 14:25 Heart Rate 69 08/17/17 14:25 Respiratory Rate 18 08/17/17 14:25 Blood Pressure 140/81 H 08/17/17 14:25 O2 Sat (%) 95 08/17/17 14:25 O2 Delivery Mode Room Air Allergies/Adverse Reactions: unknown pain med Allergy (Uncoded 04/09/17 18:48) NAUSEA Home Medications: Medication Instructions Recorded C/E/Zn/Cu/OM3/DHA/EPA/LUT/ZEAX 1 each PO BID 04/09/17 [Preservision Areds 2 Softgel] Glucosamine Sulfate [Glucosamine 500 mg PO DAILY 04/09/17 Sulfate 500 MG (*)] Herbals/Supplements -Info Only 1 ea PO DAILY 04/09/17 Psyllium Husk (with Sugar) 1 each PO DAILY 04/09/17 [Metamucil Packet] Carvedilol [Coreg (*)] 6.25 mg PO BIDMEAL #60 tab 04/10/17 Lidocaine [Lidoderm] 1 each TP DAILY PRN #30 adh..patch 08/17/17 Meloxicam 7.5 mg PO DAILY #10 tablet 08/17/17 MDM/Departure - [facility] ED Course/Re-evaluation: 87-year-old woman presents with left-sided lower rib pain after fall. Vital signs are stable and the patient has normal peripheral oxygen saturation. Patient also sustained a head injury but since the fall was 2 days ago and she is currently asymptomatic and neurologically intact there is no indication for neuro imaging at this time. Chest x-ray showed no evidence of hemopneumothorax or obvious rib fracture. There is no underlying pneumonia. We will treat the patient for rib contusions/ clinical rib fracture with topical lidocaine patches, meloxicam and Tylenol. We discussed that this is not adequate pain relief that she would need to return or see her primary care physician for stronger pain medicines so that she gets good pain relief and does not become a set up for pneumonia. I discussed this plan with the patient daughter who understand. - Depart Disposition: Home, Routine, Self-Care Clinical Impression: Contusion of rib on left side Qualifiers: Encounter type: initial encounter Qualified Code(s): S20.212A - Contusion of left front wall of thorax, initial encounter Condition: Good Instructions: Rib Contusion (ED) Additional Instructions: You were seen by Dr. Juana Szymanski today. Take meloxicam as needed for pain once daily. Use lidocaine patches as needed for pain. You may take acetaminophen (Tylenol) a 1000 mg every 6 hr for the next few days if he needed additional pain medicine. If you are not getting adequate pain relief for this, if you are having difficulty breathing, or he develops fever please be seen immediately. Return for any worsening or new concerns. Prescriptions: Lidocaine [Lidoderm] 1 each TP DAILY PRN #30 adh..patch PRN Reason: pain Meloxicam 7.5 mg PO DAILY #10 tablet Referrals: Noemy Albert MD [Primary Care Provider] - As per Instructions
[2017-08-17 17:12] VITALS: BP 148/82
== END 2017-08-17 15:55 | disposition home or self-care (01) ==
LOC: CED 14:18
DX: S20.212A Contusion of left front wall of thorax, initial encounter (principal); W18.39XA Other fall on same level, initial encounter; Y92.007 Garden or yard of unspecified non-institutional (private) residence as the place of occurrence of the external cause
CPT/HCPCS: 71046-PO

== ENCOUNTER 2017-08-27 11:44 | Emergency (ER) | payer OTHER, MEDICAID ==
[2017-08-27] MEDS ORDERED: AZITHROMYCIN 250 MG TAB PO ONE (12:49)
--- NOTE | 2017-08-27 12:54 | EDPHY ---
H & P Stated Complaint: Cough and L rib/back pain after fall 13 days ago. Time Seen by Provider: 08/27/17 12:02 HPI/ROS: This patient reports ongoing left-sided rib pain since the fall 13 days ago. She was seen after that fall with chest x-ray did not reveal any displaced rib fractures. She is prescribed Lidoderm patches which she has been using with initially some improvement but over the past 2 days she started developed increasing her left-sided low posterior chest wall pain associated with coughing. She describes the cough is a dry cough and reports the pain intensity is 7/10. She has not taken analgesics other than the Lidoderm patches. She also reports that she had a minor head injury from her fall was not had a headache since the fall. Her drove her in for evaluation of her current symptoms. Patient does note tenderness to the area pain the partially reproduces her symptoms. ROS constitutional: No fevers or chills. No fatigue. HEENT: No complaints neuro: No numbness tingling or focal weakness. No confusion. No visual changes. Musculoskeletal: No midline neck or back pain. Pulmonary: No respiratory distress. No hemoptysis. No significant dyspnea. Cardiovascular: No heart palpitations. No lower extremity swelling. No chest pain at baseline, only with a deep breath. GI: No nausea vomiting Endocrine: No diaphoresis Integumentary: No pallor 10 point ROS is otherwise negative. Source: Patient Exam Limitations: No limitations - Personal History Current Tetanus Diphtheria and Acellular Pertussis (TDAP): Yes Tetanus Vaccine Date: within 10 years - Medical/Surgical History Hx Asthma: No Hx Chronic Respiratory Disease: No Hx Diabetes: No Hx Cardiac Disease: Yes Hx Renal Disease: No Hx Cirrhosis: No Hx Alcoholism: No Hx HIV/AIDS: No Hx Splenectomy or Spleen Trauma: No Other PMH: ulcer, Hepatitis C-remission, HTN, pre-diabetes - Social History Smoking Status: Never smoked Alcohol Use: Rarely Drug Use: None - Physical Exam Exam: General Appearance: Alert, no distress. Eyes: Pupils equal and round no pallor or injection. ENT, resolving contusion to the right forehead from her fall 2 weeks ago. No tenderness to the forehead. No other evidence of acute or subacute facial trauma Mouth: Mucous membranes moist. Respiratory: Diminished breath sounds at the left base. Otherwise clear to auscultation bilaterally. Cardiovascular: Regular rate and rhythm. No murmur gallop rub. No JVD. No peripheral edema. Gastrointestinal: Abdomen is soft and nontender, no masses, bowel sounds normal. Neurological: GCS 15 with no focal deficits. Skin: Warm and dry, no rashes. Musculoskeletal: Neck is supple nontender. Extremities are symmetrical, full range of motion. Psychiatric: Mood and affect are normal DIFFERENTIAL DIAGNOSIS: After history and physical exam differential diagnosis was considered for pneumonia, atelectasis, bronchitis, rib fracture, pneumothorax, hemothorax Constitutional: Initial Vital Signs Temperature (C) 36.7 C 08/27/17 11:53 Heart Rate 106 H 08/27/17 11:53 Respiratory Rate 16 08/27/17 11:53 Blood Pressure 167/104 H 08/27/17 11:53 O2 Sat (%) 95 08/27/17 11:53 O2 Delivery Mode Room Air Allergies/Adverse Reactions: unknown pain med Allergy (Uncoded 08/27/17 11:53) pt reports NAUSEA Home Medications: Medication Instructions Recorded Azithromycin [Zithromax] 250 mg PO DAILY #4 tab 08/27/17 Levalbuterol Inhaler [Xopenex Hfa 2 puffs IH Q4 PRN #1 mdi 08/27/17 Inhaler] Lidocaine [Lidoderm] 1 each TP DAILY #15 adh..patch 08/27/17 Methocarbamol [Robaxin 750 mg (*)] 750 - 1,500 mg PO QID PRN #30 tab 08/27/17 Unknown Bp Med 08/27/17 Medical Decision Making - Diagnostics Imaging Results: Two view chest x-ray: Left basilar atelectasis by my interpretation. No displaced rib fractures. No pneumothorax. No other abnormalities Imaging: I viewed and interpreted images myself ED Course/Re-evaluation: Discussion: Patient presents with cough and atelectasis consistent with hyperventilation from chest wall injury likely nondisplaced rib fracture. No rales or evidence of focal infiltrate. No fevers. I do Not think she has pneumonia Patient treated here with nebulizer and Zithromax p. O.. I counseled regarding her diagnosis with treatment plan to continue Lidoderm patches, Tylenol. She is also instructed in the use of an incentive spirometer and sometime within symptoms spirometer. She will follow up with primary care physician for any ongoing symptoms. Answered all her questions prior to discharge home. - Data Points Medications Given: Discontinued Medications Azithromycin (Zithromax) 500 mg PO EDNOW ONE PRN Reason: Protocol Stop: 08/27/17 12:50 Last Admin: 08/27/17 13:12 Dose: 500 mg Departure - Departure Disposition: Home, Routine, Self-Care Clinical Impression: Chest wall injury, Bronchitis Condition: Good Instructions: Rib Fracture (ED), Acute Bronchitis (ED) Additional Instructions: Diagnosis: Chest wall injury 2. Bronchitis Plan: Humidifier Xopenex inhaler for cough, wheeze or shortness of breath Use incentive spirometer to help expand compressed area of lung Zithromax antibiotic Continue Lidoderm patches for pain control, methocarbamol muscle relaxant and Tylenol in addition as needed. Follow up with your primary care physician for any ongoing symptoms that persist beyond the next 2 weeks. Return emergency department if he develops any significant worsening despite the treatment plan. Referrals: Noemy Albert MD [Primary Care Provider] - As per Instructions Prescriptions: Azithromycin [Zithromax] 250 mg PO DAILY #4 tab Levalbuterol Inhaler [Xopenex Hfa Inhaler] 2 puffs IH Q4 PRN #1 mdi PRN Reason: Wheezing Lidocaine [Lidoderm] 1 each TP DAILY #15 adh..patch Methocarbamol [Robaxin 750 mg (*)] 750 - 1,500 mg PO QID PRN #30 tab PRN Reason: Muscle Spasms Print Language: Portuguese
[2017-08-27 13:25] VITALS: BP 158/101
== END 2017-08-27 13:25 | disposition home or self-care (01) ==
LOC: CED 11:44
DX: J20.9 Acute bronchitis, unspecified (principal); S29.9XXD Unspecified injury of thorax, subsequent encounter; I10 Essential (primary) hypertension; W19.XXXD Unspecified fall, subsequent encounter
CPT/HCPCS: 71046-PO